=== PATIENT | male | born 1950 | race Caucasian/White ===

== ENCOUNTER → 2017-10-31 11:38 | Outpatient (CLI) | payer MEDICARE, SELFPAY ==
[2017-10-31 13:07] LABS: Prostate Specific Ag, Diagnost 4.73 ng/mL (0.0-4.0)
== END ==
PROVIDERS: Visit Provider Urology
DX: R97.20 Elevated prostate specific antigen [PSA] (principal)
CPT/HCPCS: 36415; 84153

== ENCOUNTER → 2018-05-20 12:53 | Outpatient (CLI) | payer MEDICARE, SELFPAY ==
--- NOTE | 2018-05-20 12:57 | XR_ITS ---
XR foot wt bearing RT 3V HISTORY: ITS.REASON: pain ORDERING PHYSICIAN: Anjelica Snyder DPM PATIENT AGE: 67 years COMPARISON: None FINDINGS: No fracture or dislocation. No lytic or blastic change. There is normal mineralization.. The joint spaces are well-preserved. There are minimal osteoarthritic changes of the first metatarsal phalangeal joint. There is good alignment. IMPRESSION: Mild osteoarthritis first MTP joint
--- NOTE | 2018-05-20 12:57 | XR_ITS ---
XR foot wt bearing LT 3V HISTORY: ITS.REASON: pain ORDERING PHYSICIAN: Anjelica Snyder DPM PATIENT AGE: 67 years COMPARISON: None FINDINGS: No fracture or dislocation. No lytic or blastic change. There is normal mineralization.. The joint spaces are well-preserved. Bony hypertrophic changes are present at the distal aspect of the tibia dorsally. Old fracture versus accessory center of ossification noted at the medial malleolus region. Minimal osteoarthritic changes are present at the first metatarsophalangeal joint. IMPRESSION: No acute finding. Minimal osteoarthritic change first metatarsophalangeal joint. Old fracture of the distal tibia
== END ==
PROVIDERS: PCP Family Medicine; Visit Provider Podiatrist
DX: M79.672 Pain in left foot (principal); M79.671 Pain in right foot
CPT/HCPCS: 73630

== ENCOUNTER → 2018-10-20 14:57 | Outpatient (CLI) | payer MEDICARE, SELFPAY | PROVIDERS: PCP Family Medicine; Visit Provider Family Medicine | DX: M25.562 Pain in left knee (principal) ==

== ENCOUNTER → 2018-11-03 10:18 | Outpatient (CLI) | payer MEDICARE, SELFPAY ==
--- NOTE | 2018-11-03 10:22 | MR_ITS ---
MR knee LT wo con HISTORY: Knee pain, popping ITS.REASON: LEFT KNEE PAIN ORDERING PHYSICIAN: Ho Ricci MD PATIENT AGE: 68 years Comparison: None TECHNIQUE: Standard multiplanar multiecho sequences are performed without contrast. FINDINGS: The cruciate ligaments are intact. The collateral ligaments, quadriceps tendon are intact. There is a small area of increased T1 and T2 signal involving the mid aspect of the patellar tendon and could be due to an old injury. There is increased T2 signal involving the posterior horn of the medial meniscus but does not meet strict MRI criteria for meniscal tear. No definite meniscal tear apparent. The patellar cartilage is well preserved. No fracture or dislocation. Small knee joint effusion. IMPRESSION: 1. No evidence of internal derangement. 2. Small focal area of increased T1 and T2 signal within the mid aspect of the patellar tendon which could be due to an old partial tear. Complete tear with tendinous retraction is not apparent. 3. Small knee joint effusion
== END ==
PROVIDERS: PCP Family Medicine; Visit Provider Family Medicine
DX: M25.562 Pain in left knee (principal)
CPT/HCPCS: 73721

== ENCOUNTER → 2018-11-04 10:30 | Outpatient (CLI) | payer MEDICARE, SELFPAY ==
[2018-11-04 12:37] LABS: Prostate Specific Ag, Diagnost 3.39 ng/mL (0.0-4.0)
== END ==
PROVIDERS: Visit Provider Urology
DX: R97.20 Elevated prostate specific antigen [PSA] (principal)
CPT/HCPCS: 36415; 84153

== ENCOUNTER → 2018-11-10 13:02 | Outpatient (CLI) | payer MEDICARE, SELFPAY ==
--- NOTE | 2018-11-10 13:15 | XR_ITS ---
XR knee LT 4V HISTORY: ITS.REASON: knee pain ORDERING PHYSICIAN: Josefina Rincon MD PATIENT AGE: 68 years COMPARISON: None FINDINGS: No fracture or dislocation. No lytic or blastic change. Normal mineralization. No significant arthritic changes evident. No other significant findings In the mid shaft of the left femur on the edge of the film on the lateral view there is an area of exostosis involving the posterior aspect of the femur suggesting an old rapture. Femur films suggested for confirmation. There also appears to be an old fracture proximal fibula. IMPRESSION: Negative Knee Suspect old fractures of the midshaft of the femur and the proximal fibula
== END ==
PROVIDERS: PCP Family Medicine; Visit Provider Orthopaedic Surgery
DX: M25.562 Pain in left knee (principal)
CPT/HCPCS: 73564

== ENCOUNTER → 2019-04-09 12:56 | Outpatient (CLI) | payer MEDICARE, SELFPAY ==
--- NOTE | 2019-04-09 13:02 | CT_ITS ---
PROCEDURE: CT SHOULDER RT WO CON CLINICAL HISTORY: RT SHOULDER PAIN' Right shoulder pain COMPARISON: No exams were available for comparison TECHNIQUE: Axial images obtained with sagittal and coronal reformats. All CT scans at the facility use one or more dose reduction, viz: automated exposure control, ma/kV adjustment per patient size (including targeted exams where dose is matched to indication, i.e. head), or iterative reconstruction technique. FINDINGS: No fracture or dislocation. There are mild osteoarthritic changes the acromioclavicular joint with some mild spurring of the AC joint. There is a type 3 acromion downsloping anteriorly which may be causing some impingement upon the supraspinatus tendon. Subchondral cystic changes present in the humeral head at 6 mm. There is some mild irregularity at the base of the greater tuberosity with some sub chondral cystic change. These findings may also be seen with rotator cuff disease. Cannot confirm the integrity of the rotator cuff based on these non-arthrographic images. IMPRESSION: 1. Type 3 acromion with acromioclavicular arthropathy with some cortical irregularity of the humeral head and subchondral cystic changes. All of these findings may be seen with rotator cuff disease and may be better evaluated with MRI. 2. No acute fracture or dislocation Dictated by: José Prieto MD 04/10/2019 12:14 Electronically signed by José Prieto MD in [facility] 04/10/2019 12:14
== END ==
PROVIDERS: PCP Family Medicine; Visit Provider Family Medicine
DX: M25.511 Pain in right shoulder (principal)
CPT/HCPCS: 73200

== ENCOUNTER 2019-05-28 14:00 | Outpatient (RCR) | payer MEDICARE, SELFPAY | END 2019-05-28 14:05 | disposition home or self-care (01) | LOC: PT 14:00 | PROVIDERS: PCP Family Medicine; Visit Provider Family Medicine | DX: M25.511 Pain in right shoulder (principal) | CPT/HCPCS: 97014; 97033; 97035; 97110; 97140; 97163; G0283 ==

== ENCOUNTER → 2019-11-02 11:32 | Outpatient (CLI) | payer MEDICARE, SELFPAY ==
[2019-11-02 13:19] LABS: Prostate Specific Ag, Diagnost 3.52 ng/ml (0.0-4.0)
== END ==
PROVIDERS: Visit Provider Urology
DX: R97.20 Elevated prostate specific antigen [PSA] (principal)
CPT/HCPCS: 36415; 84153

== ENCOUNTER → 2020-06-06 12:46 | Outpatient (CLI) | payer MEDICARE, SELFPAY ==
--- NOTE | 2020-06-06 12:51 | MR_ITS ---
PROCEDURE: MR SHOULDER LT WO CON CLINICAL INDICATION: LEFT SHOULDER PAIN SHOULDER PAIN [id number]. PAIN WHEN RAISING ARM ABOVE HEAD. PRIOR CT 04-09-19 COMPARISON: No exams were available for comparison TECHNIQUE: Routine multiplanar multi echo sequences are performed without gadolinium enhancement. FINDINGS: There is acromioclavicular hypertrophy. There is a downsloping acromion laterally with moderate subacromial stenosis and impingement upon the supraspinatus tendon. The infraspinatus tendon is unremarkable. There is focal increased T2 signal involving the distal aspect of the supraspinatus tendon consistent with a partial tear posteriorly. A full-thickness tear is not felt to be present. A partial tear is also suspected superiorly at the musculotendinous junction at the region of the low-lying acromion. The subscapularis and teres minor tendons appear intact. No obvious labral tear. The bicipital tendon is in place. Small amount of fluid is present along the lateral aspect of the bicipital tendon sheath. There is a small amount fluid along the inferior aspect of the clavicle and in the subdeltoid region. Small amount fluid is also present in the subcoracoid area. Small subchondral cystic changes present in the humeral head. There is mild osteoarthritic change of the shoulder IMPRESSION: Acromioclavicular hypertrophy with low-lying acromion with subacromial stenosis with partial tear of the supraspinatus tendon distally and posteriorly and also suspected along the musculotendinous junction superiorly. A full-thickness or complete tear is not identified. Osteoarthritis of the AC joint and glenohumeral joint with a small amount fluid in the sub coracoid region and subdeltoid area and with suspected tenosynovitis of the bicipital tendon Dictated by: José Prieto MD 06/07/2020 12:18 José Prieto MD in [facility] 06/07/2020 12:18
== END ==
PROVIDERS: PCP Family Medicine; Visit Provider Family Medicine
DX: M25.512 Pain in left shoulder (principal)
CPT/HCPCS: 73221

== ENCOUNTER → 2020-11-17 11:39 | Outpatient (CLI) | payer MEDICARE, SELFPAY ==
[2020-11-17 14:49] LABS: Prostate Specific Ag Screen 3.9 ng/ml (0.0-4.0)
== END ==
PROVIDERS: Visit Provider Urology
DX: Z12.5 Encounter for screening for malignant neoplasm of prostate (principal)
CPT/HCPCS: 36415; G0103

== ENCOUNTER 2021-04-14 08:58 | Outpatient (CLI) | payer MEDICARE, SELFPAY ==
[2021-04-14] VITALS (7 sets, daily range): BP systolic 110–129; BP diastolic 78–87; PULSE 69–79; RESP 16; TEMP 36.9–37.1; O2SAT 93–96
== END 2021-04-14 12:00 | disposition home or self-care (01) ==
LOC: INF 09:00
PROVIDERS: PCP Family Medicine; Visit Provider Family Medicine
DX: U07.1 COVID-19 (principal); Z23 Encounter for immunization
CPT/HCPCS: 96365

== ENCOUNTER 2021-04-17 10:23 | Emergency (ER) | payer MEDICARE, SELFPAY ==
[2021-04-17] VITALS (9 sets, daily range): BP systolic 97–116; BP diastolic 67–84; PULSE 70–92; RESP 14–18; TEMP 36.4; O2SAT 95–98; BMI 25.1; BMI 24.3
--- NOTE | 2021-04-17 10:21 | ECG_ITS ---
APPROVED REPORT Exam: Resting ECG HR:88 bpm ECG Measurements Heart Rate 88 AXES IL 178 P 53 QRSd 92 QRS 32 QT 362 T 31 QTc 438 Conclusion Normal sinus rhythm Cannot rule out Anterior infarct, age undetermined Abnormal ECG Electronically signed by : Roosevelt Riley MD 04/18/2021 21:05:56
--- NOTE | 2021-04-17 10:31 | XR_ITS ---
PROCEDURE: XR CHEST PORTABLE CLINICAL HISTORY: chest pain, covid COMPARISON: No exams were available for comparison FINDINGS: The cardiomediastinal silhouette and pulmonary vascularity are within normal limits. The lungs are clear without infiltrates, suspicious nodules, or pleural effusions. COPD changes. No acute bony findings. IMPRESSION: No acute findings. Dictated by: José Prieto MD 04/17/2021 11:11 José Prieto MD in [facility] 04/17/2021 11:11
--- NOTE | 2021-04-17 10:37 | [facility].EDGENADL ---
ED Disposition Clinical Impression: COVID-19 Chest pain Qualifiers: Chest pain type: precordial pain Qualified Code(s): R07.2 - Precordial pain Disposition: Home, Self-Care Condition on Discharge: Fair Instructions: DI for Atypical Chest Pain, DI for COVID-19 (Suspected or Confirmed ) Additional Instructions: You have been evaluated for chest pain in the setting of COVID-19. Please continue taking Tylenol. Monitor your symptoms closely. Follow-up with your primary care doctor in 1 to 2 days for symptom recheck. Return to the emergency department for any new or worsening symptoms. Referrals: Ho Ricci MD [Primary Care Provider] - Time of Disposition: 14:15 - Critical Care Critical Care Time: No Attestation: On 04/17/21, the high probability of a clinically significant, sudden or life threatening deterioration of the following system(s) required my full and direct attention, intervention and personal management. The time I documented below is in addition to time spent performing reported procedures but includes the following listed in this critical care notation. Medical Decision Making - Medical Records Medical records reviewed: Yes: I reviewed the patient's medical records. - [place] Inquiry Pt receiving controlled substance: No Vital Signs: 04/17/21 10:23 04/17/21 10:30 04/17/21 11:30 Temperature 97.5 F L Temperature Source Oral Pulse Rate 84 78 Pulse Rate [Left Radial] 92 H Respiratory Rate 18 15 15 Blood Pressure 107/77 L 97/67 L Blood Pressure [Right Arm] 116/84 Blood Pressure Mean 85 77 Blood Pressure Mean [Right Arm] 94 Blood Pressure Source [Right Arm] Automatic Cuff Blood Pressure Position [Right Arm] Sitting 02 Sat by Pulse Oximetry 96 96 98 Oxygen Delivery Method Room Air 04/17/21 12:00 04/17/21 12:31 04/17/21 13:00 Temperature Temperature Source Pulse Rate 76 72 77 Pulse Rate [Left Radial] Respiratory Rate 15 14 16 Blood Pressure 105/79 L 104/75 L 104/68 L Blood Pressure [Right Arm] Blood Pressure Mean 85 83 77 Blood Pressure Mean [Right Arm] Blood Pressure Source [Right Arm] Blood Pressure Position [Right Arm] 02 Sat by Pulse Oximetry 96 96 97 Oxygen Delivery Method 04/17/21 13:30 04/17/21 14:00 04/17/21 14:37 Temperature 97.5 F L Temperature Source Oral Pulse Rate 70 70 70 Pulse Rate [Left Radial] Respiratory Rate 15 14 14 Blood Pressure 106/71 L 104/75 L 104/75 L Blood Pressure [Right Arm] Blood Pressure Mean 77 86 Blood Pressure Mean [Right Arm] Blood Pressure Source [Right Arm] Blood Pressure Position [Right Arm] 02 Sat by Pulse Oximetry 97 95 Oxygen Delivery Method Room Air - Lab Data Lab Results 04/17/21 11:05: WBC 4.8, RBC 4.96, Hgb 16.4, Hct 47.4, MCV 95.7 H, MCH 33.2 H, MCHC 34.7, RDW 12.3, Plt Count 225, MPV 7.2 L, Neut % (Auto) 68.0, Lymph % (Auto) 20.5, [place] % (Auto) 8.2, Eos % (Auto) 2.5, Baso % (Auto) 0.8, Neut # (Auto) 3.2, Lymph # (Auto) 1.0, [place] # (Auto) 0.4, Eos # (Auto) 0.1, Baso # (Auto) 0.0 04/17/21 11:05: Sodium 140, Potassium 3.7, Chloride 101, Carbon Dioxide 31 H, Anion Gap 11.7, BUN 32 H, Creatinine 0.90, Estimated Creat Clear 73, Estimated GFR 83, Est GFR ( Amer) 100, Glucose 103 H, Calcium 9.6, Total Bilirubin 0.9, AST 46, ALT 40, Alkaline Phosphatase 49, Troponin I < 0.01, C-Reactive Protein 8.9 H, Total Protein 7.6, Albumin 4.2, Globulin 3.4 H, Albumin/Globulin Ratio 1.2 04/17/21 11:05: Ferritin 199 04/17/21 13:30: Troponin I < 0.01 Result diagrams: 04/17/21 11:05 04/17/21 11:05 Orders (Tests/Meds): ED MEDICATIONS Discontinued Medications Generic Name Dose Route Start Last Admin Trade Name Freq PRN Reason Stop Dose Admin Aspirin 325 mg 04/17/21 10:32 04/17/21 10:46 Aspirin 325mg Tablet PO 04/17/21 10:33 Not Given ONCE ONE Aspirin 162 mg 04/17/21 10:49 04/17/21 10:50 Aspirin 81mg Chewable Tablet PO 04/17/21 10:50 162 mg O
[2021-04-17 11:24] LABS: Basophils % 0.8 % (0.1-2.0); Eosinophils # 0.1 K/mm3 (0.0-0.4); Eosinophils % 2.5 % (0.1-12.0); Hematocrit 47.4 % (42.0-52.0); Hemoglobin 16.4 g/dL (14.1-18.0); Lymphocytes % 20.5 % (10-50); Mean Corpuscular HGB Conc 34.7 g/dL (31.8-35.4); Mean Corpuscular Hemoglobin 33.2 pg (27.0-31.2); Mean Corpuscular Volume 95.7 fl (80-94); Mean Platelet Volume 7.2 fl (7.4-10.4); Monocytes # 0.4 K/mm3 (0.1-1.0); Monocytes % 8.2 % (1.7-9.3); Neutrophils # 3.2 K/mm3 (1.8-7.8); Platelet Count 225 K/mm3 (142-424); Red Blood Count 4.96 M/mm3 (4.60-6.20); Red Cell Distribution Width 12.3 % (11.5-17.5); White Blood Count 4.8 K/mm3 (4.8-10.8)
[2021-04-17 11:29] LABS: Chloride 101 mmol/L (98-107); Potassium 3.7 mmoL/L (3.5-5.1); Sodium 140 mmol/L (136-145)
[2021-04-17 11:31] LABS: Blood Urea Nitrogen 32 mg/dl (9-20); Creatinine Clearance Estimated 73 mL/min (50-200); Estimated Glomerular Filt Rate 83 ml/min (>60); GFR (African American) 100 ML/MIN (>60)
[2021-04-17 11:32] LABS: Alanine Aminotransferase 40 U/L (12-78); Albumin Level 4.2 g/dl (3.5-5.0); Albumin/Globulin Ratio 1.2 (1.1-1.8); Alkaline Phosphatase 49 U/L (38-126); Anion Gap 11.7 mEq/L (5-15); Aspartate Amino Transferase 46 U/L (17-59); Bilirubin,Total 0.9 mg/dl (0.2-1.3); Calcium 9.6 mg/dl (8.4-10.2); Carbon Dioxide 31 mmol/L (22.0-30.0); Globulin 3.4 g/dL (1.3-3.2); Glucose 103 mg/dl (74-100); Total Protein,Serum 7.6 g/dl (6.3-8.2)
[2021-04-17 11:38] LABS: C-Reactive Protein 8.9 mg/L (0-4)
[2021-04-17 11:49] LABS: Troponin I < 0.01 ng/ml (0.00-0.034)
[2021-04-17 12:10] LABS: Ferritin 199 ng/ml (17.9-464)
[2021-04-17 14:21] LABS: Troponin I < 0.01 ng/ml (0.00-0.034)
== END 2021-04-17 14:47 | disposition home or self-care (01) ==
PROVIDERS: Emergency Provider Emergency Medicine; PCP Family Medicine
DX: U07.1 COVID-19 (principal); R07.2 Precordial pain; K21.9 Gastro-esophageal reflux disease without esophagitis; E78.5 Hyperlipidemia, unspecified; I10 Essential (primary) hypertension; M15.9 Polyosteoarthritis, unspecified
CPT/HCPCS: 71045; 80053; 82728; 84484; 85025; 86140; 93005; 99283

== ENCOUNTER → 2021-11-17 14:16 | Outpatient (CLI) | payer MEDICARE, SELFPAY ==
[2021-11-17 15:45] LABS: Prostate Specific Ag, Diagnost 4.05 ng/ml (0.0-4.0)
== END ==
PROVIDERS: PCP Family Medicine; Visit Provider Urology
DX: N40.1 Benign prostatic hyperplasia with lower urinary tract symptoms (principal)
CPT/HCPCS: 36415; 84153

== ENCOUNTER → 2022-02-06 11:54 | Outpatient (CLI) | payer MEDICARE, SELFPAY ==
[2022-02-06 12:56] LABS: Blood Urea Nitrogen 23 mg/dl (9-20); Estimated Glomerular Filt Rate 83 ml/min (>60); GFR (African American) 100 ML/MIN (>60)
== END ==
PROVIDERS: PCP Family Medicine; Visit Provider Family Medicine
DX: Z01.812 Encounter for preprocedural laboratory examination (principal)
CPT/HCPCS: 36415; 82565; 84520

== ENCOUNTER → 2022-02-07 10:55 | Outpatient (CLI) | payer MEDICARE, SELFPAY ==
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
== END ==
PROVIDERS: PCP Family Medicine; Visit Provider Family Medicine
DX: S06.0XAA Concussion with loss of consciousness status unknown, initial encounter (principal)
CPT/HCPCS: 70553; A9576

== ENCOUNTER → 2022-07-17 12:56 | Outpatient (CLI) | payer MEDICARE, SELFPAY ==
--- NOTE | 2022-07-17 13:08 | XR_ITS ---
FINAL REPORT TECHNIQUE: Chest PA & Lateral CLINICAL HISTORY: LONG COVID, COUGH COMPARISON: 03/2021 FINDINGS: 2 views of the chest were performed. The heart size is normal. The mediastinum is within normal limits. There is no acute cardiopulmonary process. There are no pleural effusions. There is no pneumothorax. The bony thorax appears intact. IMPRESSION: No acute cardiopulmonary process. Reviewed, Interpreted and Dictated by Thomas Robertson MD Transcribed by ePng Ospina Authenticated and [facility]
== END ==
PROVIDERS: PCP Family Medicine; Visit Provider Family Medicine
DX: R05.9 Cough, unspecified (principal); U09.9 Post COVID-19 condition, unspecified
CPT/HCPCS: 71046

== ENCOUNTER → 2022-10-31 14:08 | Outpatient (CLI) | payer MEDICARE, SELFPAY ==
[2022-10-31 14:42] LABS: Creatine Kinase 74 U/L (55-170)
[2022-10-31 14:57] LABS: Troponin I < 0.01 ng/ml (0.00-0.034)
[2022-11-02 14:28] LABS: Myoglobin 62 ng/mL (28-72)
== END ==
PROVIDERS: PCP Family Medicine; Visit Provider Family Medicine
DX: R07.9 Chest pain, unspecified (principal); R42 Dizziness and giddiness
CPT/HCPCS: 36415; 82550; 83874; 84484

== ENCOUNTER 2023-11-14 10:05 | Outpatient (RCR) | payer MEDICARE, SELFPAY | END 2023-12-20 11:00 | disposition home or self-care (01) | LOC: PT 10:05 | PROVIDERS: Visit Provider Internal Medicine Cardiovascular Disease | DX: Z95.5 Presence of coronary angioplasty implant and graft (principal) | CPT/HCPCS: 93798 ==

== ENCOUNTER 2024-08-19 11:04 | Outpatient (CLI) | payer MEDICARE, SELFPAY ==
--- NOTE | 2024-08-19 11:11 | XR_ITS ---
FINAL REPORT CLINICAL HISTORY: RIGHT SHOULDER PAIN COMPARISON: None FINDINGS: 3 views of the right shoulder were obtained. There is no acute fracture or dislocation. There is degenerative disease at both the glenohumeral and acromioclavicular joints. Soft tissues are unremarkable. 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 Reviewed, Interpreted and Dictated by Laura Tesfaye MD Transcribed by Melida Cotton Authenticated and [facility]
== END 2024-08-19 23:59 | disposition home or self-care (01) ==
LOC: RAD 11:06
PROVIDERS: PCP Family Medicine; Visit Provider Family Medicine
DX: M25.511 Pain in right shoulder (principal)
CPT/HCPCS: 73030

== ENCOUNTER 2024-09-24 11:00 | Outpatient (RCR) | payer MEDICARE, SELFPAY | END 2024-09-24 23:59 | disposition home or self-care (01) | LOC: OT 11:00 | PROVIDERS: PCP Family Medicine; Visit Provider Family Medicine | DX: M25.511 Pain in right shoulder (principal) | CPT/HCPCS: 97014; 97110; 97140; 97166; G0283 ==

== ENCOUNTER 2024-10-15 10:00 | Outpatient (RCR) | payer MEDICARE, SELFPAY | END 2024-10-15 23:59 | disposition home or self-care (01) | LOC: OT 10:00 | PROVIDERS: PCP Family Medicine; Visit Provider Family Medicine | DX: M25.511 Pain in right shoulder (principal) | CPT/HCPCS: 97010; 97014; 97110; 97140; 97530; G0283 ==